=== PATIENT | male | born 1950 | race Caucasian/White ===

== ENCOUNTER 2021-07-05 12:14 | Observation (INO) | payer OTHER ==
[~2021-07-05] VITALS: Ht 165.1 cm; Wt 70.6 kg
[2021-08-10] VITALS (10 sets, daily range): BP systolic 116–164; BP diastolic 61–97; PULSE 58–92; TEMP 97.8–98.4
[2021-08-10] MEDS ORDERED: PLAVIX 75MG TAB75 MG PO (11:21)
[2021-08-10] MEDS ORDERED: ZOCOR 40MG40 MG PO (11:22)
[2021-08-10] MEDS ORDERED: EPA FISH OIL1 SGL PO (11:22)
[2021-08-10] MEDS ORDERED: ASPIRIN 81M81 MG/TA2 PO (11:23)
[2021-08-10] MEDS ORDERED: FLOMAX 0.40.4 MG/CAP PO (11:24)
[2021-08-10] MEDS ORDERED: MULTI VITAMINS1 TAB PO (11:25)
[2021-08-10] MEDS ORDERED: ZESTORETIC 12.51 TA1 PO (11:25)
[2021-08-10] MEDS ORDERED: LOPRESSOR 225 MG/TAB PO (11:26)
--- NOTE | 2021-08-10 17:00 | NUR ---
PT ARRIVES FROM PACU @ 1610. IS A&O X3, IVF INFUSING. CBI RUNNING AT A SLOW RATE, URINE IS YELLOW/PINK ET CLEAR. ORNELAS CATHETER DRAINING, SECURED TO LEFT LEG. PT DENIES ANY NAUSEA, DRINKS WATER WITH EASE, IS ADVANCED TO A GENERAL DIET. PT'S DAUGHTER IS @ BEDSIDE. BILATERAL SCDS IN PLACE. PT IS ORIENTED TO CALL LIGHT ET FALL PRECAUTIONS, DEMONSTRATES UNDERSTANDING.
--- NOTE | 2021-08-10 19:43 | NUR ---
ASSESSMENT COMPLETE. PT. SITTING UP IN BED. A&O. CBI FLOWING. ORNELAS IN PLACE DEPENDENT TO DRAINAGE. INT IN LEFT FOREARM. DENIES NAUSEA AND PAIN. CALL LIGHT IN REACH. NO FURHTER NEEDS AT THIS TIME.
[2021-08-11 04:04] VITALS: BP 126/71; PULSE 60; TEMP 97.6
--- NOTE | 2021-08-11 08:00 | NUR ---
CBI RUNNING @ A SLOW RATE, URINE IN ORNELAS BAG ET TUBING LIGHT PINK/YELLOW ET CLEAR. IV INT, PT IS DRINKING WATER. PT HAS BEEN ASSISTED WITH SBA TO BR THIS MORNING, WAS UNABLE TO HAVE A BM, WAS ASSISTED BACK INTO BED. PT DENIES ANY PAIN BUT HAS OCCASIONAL SENSATIONS OF HAVING TO URINATE.
[2021-08-11 08:27] VITALS: BP 131/73; PULSE 64; TEMP 97.6
--- NOTE | 2021-08-11 09:12 | NUR ---
PT'S ORNELAS CATH HAS BEEN PRIMED ET PULLED. 30CC PULLED FROM CATHETER'S BALLOON. ELTON CARE COMPLETED. PT HAS NOT YET URINATED, IS INSTRUCTED ON 6 CUP PROCESS, VERBALIZES UNDERSTANDING.
--- NOTE | 2021-08-11 09:21 | NUR ---
Initial visit; Patient thanked for stopping and visiting. wishied Joseph vaca.
--- NOTE | 2021-08-11 11:40 | NUR ---
PT IS UP WALKING IN ROOM INDEPENDENTLY, DNEIES PAIN. PT HAS URINATED X4, URINE IS RED ET CLOUDY, NO CLOTS SEEN. PT STATES THAT HE HAS PAIN ONLY WITH URINATION. PT ENCOURAGED TO DRINK LOTS OF WATER, VERBALIZES UNDERSTANDING.
[2021-08-11 11:43] VITALS: BP 148/85; PULSE 64; TEMP 97.7
--- NOTE | 2021-08-11 11:59 | NUR ---
community mental health worker met with patient to complete intake and discuss discharge plan. Patient reports that he lives in [place] with his Jasmine [phone]. He is fully independent with his ADL's and does not utilize any DME to assist with mobility. Patient has no home oxygen needs. PCP is Dr. Bridges. 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 Patient is planning on returning home once medically ready for discharge. Discharge plan: Home
--- NOTE | 2021-08-11 14:11 | NUR ---
Maribell TAMAYO CALLED ET UPDATED ON PT CONDITION. PT CONTINUES TO HAVE BRIGHT RED URINE WITH SEDIMENT, NO CLOTS SEEN. ORDERS RECEIVED TO NOT DISCHARGE PT TODAY, WILL STAY ANOTHER NIGHT. PT NOTIFIED, VERBALIZES UNDERSTANDING.
[2021-08-11 16:00] VITALS: BP 140/73; PULSE 67; TEMP 98.6
--- NOTE | 2021-08-11 19:10 | NUR ---
REPORT HAS BEEN GIVEN TO ICE SKATING COACH NURSE RODNEY. PT'S URINE IS RED ET CLOUDY, NO CLOTS SEEN. PT VOIDS 200-250 ML @ A TIME.
[2021-08-11 19:53] VITALS: BP 136/69; PULSE 75; TEMP 99.6
--- NOTE | 2021-08-11 20:35 | NUR ---
PT SHOWERED SELF. VOIDING DARK RED URINE WITHOUT CLOTS, DENIES PAIN WITH URINATION.
--- NOTE | 2021-08-11 21:10 | NUR ---
ASSESSMENT COMPLETE. PT. LYING IN BED. A&O. NO COMPLAINTS OF PAIN OR NAUSEA. URINE IS A BEAL RED COLOR. INT TO LEFT FOREARM. WATER REFRESHED. CALL LIGHT IN REACH. NO FURTHER NEEDS AT THIS TIME.
[2021-08-11 23:43] VITALS: BP 132/64; PULSE 76; TEMP 99.1
[2021-08-12 03:17] VITALS: BP 110/55; PULSE 63; TEMP 98.7
--- NOTE | 2021-08-12 07:30 | NUR ---
UROLOGY ROUNDING. PATIENT WILL LIKELY DISCHARGE HOME TODAY.
[2021-08-12 07:31] VITALS: BP 146/75; PULSE 73; TEMP 98.1
--- NOTE | 2021-08-12 08:00 | NUR ---
PATIENT IS A&O. VSS. DENIES PAIN OR NAUSEA. BREAKFAST TRAY AT BEDSIDE. AM MEDS GIVEN. HEAD TO TOE ASSESSMENT COMPLETE. PATIENT VOIDING SUFFICIENT AMOUNTS. URINE IS PUNCH COLORED WITH NO CLOTS NOTED. UROLOGY SAW PATIENT EARLY THIS AM. SEE ORDERS.
--- NOTE | 2021-08-12 09:20 | NUR ---
PATIENT WILL BE DISCHARGING HOME, CALLED HIS DAUGHTER WHO LIVES AN HOUR AWAY. GAVE DISCHARGE INSTRUCTIONS AND DISCUSSED F/U APT. ANSWERED QUESTIONS/CONCERNS. DC'D LEFT FORARM IV, COVERED SITE WITH GAUZE & COBAN. PATIENT GETTING DRESSED & PACKED
== END 2021-08-12 10:45 | disposition home or self-care (01) ==
LOC: SURG 08-10 10:52 → SDCO 08-10 10:52 → EDSTATUS 08-10 13:30 → SURG 08-10 15:10 → SDCO 08-10 15:10 → SURG 08-12 10:45 → SDCO 08-12 10:45
PROVIDERS: ADMIT Urology
DX: N40.1 Benign prostatic hyperplasia with lower urinary tract symptoms (principal); R39.12 Poor urinary stream; R39.14 Feeling of incomplete bladder emptying; R35.1 Nocturia; I25.10 Atherosclerotic heart disease of native coronary artery without angina pectoris; Z79.82 Long term (current) use of aspirin; Z87.891 Personal history of nicotine dependence; Z79.899 Other long term (current) drug therapy; Z95.1 Presence of aortocoronary bypass graft; Z79.01 Long term (current) use of anticoagulants
CPT/HCPCS: OP; J0690; J1100; J2405; J2704; J3010; J7120